=== PATIENT | female | born 1935 | race Caucasian/White ===

== ENCOUNTER 2016-11-18 12:14 | Emergency (ER) | payer OTHER ==
[~2016-11-18] VITALS: Ht 152.4 cm; Wt 80.3 kg
--- NOTE | 2016-11-18 12:42 | ED CARDIAC/CP/PALPITATIONS ---
History of Present Illness General Chief Complaint: General Adult Stated Complaint: UPPER BACK PAIN Source: patient Exam Limitations: no limitations Vital Signs & Intake/Output Vital Signs & Intake/Output Vital Signs Date Time Temp Pulse Resp B/P B/P Pulse O2 O2 Flow FiO2 Mean Ox Delivery Rate 11/18 1607 97.8 109 18 164/104 96 Room Air Room Air 11/18 1426 97.9 110 20 159/94 97 Nasal 2.0L Cannula 11/18 1303 97 Nasal 1.0L Cannula 11/18 1302 119 18 97 Nasal 1.0L Cannula 11/18 1222 98.1 136 18 138/97 95 Room Air Allergies Coded Allergies: Penicillins (HIVES 11/18/16) Sulfa (Sulfonamide Antibiotics) (HIVES 11/18/16) Uncoded Allergies: OPIOID (Severe, GI UPSET FROM NARCOTICS 11/18/16) Reconcile Medications Atorvastatin Calcium 10 MG TABLET 1 TAB PO DAILY CHOLESTEROL (Reported) Bumetanide 0.5 MG TABLET 1 TAB PO DAILY WATER RETENTION (Reported) Losartan Potassium 100 MG TABLET 1 TAB PO DAILY HEART (Reported) Triage Note: PT C/O PAIN UNDER HER LEFT SHOULDER BLADE WITH "TROUBLE BREATHING'. PT SENT IN BY DR. WHALEY TO F/O PE. PT STATES SHE HAS HX OF PE AND IS CURRENTLY TACHY ON THE MONITOR. EKG ORDERED Triage Nurses Notes Reviewed? yes HPI: 81 yo F PMH HTN, HLD, PE (not on AC) presenting with chest pain and shortness of breath. Relatively acute onset right upper back pain radiating through to the chest, pleuritic quality, non-exertional. Associated shortness of breath, constant but worse with ambulation. Bilateral lower extremity edema, right leg > left leg. Denies fevers, chills, palpitations, orthopnea, PND, abdominal symptoms, urinary symptoms, dizziness, headache, or focal neurologic symptoms. History of provoked PE one year ago in the setting of right hip surgery, on warfarin for 6 months, stopped, not currently on AC. Past History Travel History Traveled to [place] past 21 day No Medical History Any Pertinent Medical History? see below for history Cardiovascular: hypertension, hyperlipidemia Respiratory: pulmonary embolism Musculoskeletal: osteoarthritis Surgical History Surgical History: none Psychosocial History Who do you live with Patient/Self Services at Home None What is your primary language Cook Islander Tobacco Use: Quit >30 days ago ETOH Use: occasional use Illicit Drug Use: denies illicit drug use Family History Hx Contributory? No Review of Systems Review of Systems Constitutional: Reports: no symptoms. EENTM: Reports: no symptoms. Respiratory: Reports: short of breath. Cardiovascular: Reports: chest pain, peripheral edema. Denies: orthopena, syncope. GI: Reports: no symptoms. Genitourinary: Reports: no symptoms. Musculoskeletal: Reports: back pain. Skin: Reports: no symptoms. Neurological/Psychological: Reports: no symptoms. Hematologic/Endocrine: Reports: no symptoms. Immunologic/Allergic: Reports: no symptoms. All Other Systems: Reviewed and Negative Physical Exam Physical Exam General Appearance: well developed/nourished, no apparent distress, alert, awake Head: atraumatic Respiratory: normal breath sounds, no respiratory distress Cardiovascular: tachycardia Comments: Pulmonary: Normal WOB, lungs clear to ascultation bilaterally Extremities: Bilateral lower extremity edema, Right > Left Core Measures ACS in differential dx? Yes Severe Sepsis Present: No Septic Shock Present: No Progress Differential Diagnosis: aortic dissection, atrial fibrillation, CHF/pulm edema, myocarditis, pneumonia, pneumothorax, pulmonary embolism, respiratory failure Plan of Care: Orders Procedure Date/time Status Add-on Test (ER Only) 11/18 1344 Active TYPE & SCREEN (NOT X-MATCH) 11/18 1344 Complete EKG 11/18 1317 Active Add-on Test (ER Only) 11/18 1248 Active TROPONIN LEVEL 11/18 1227 Complete PARTIAL THROMBOPLASTIN TIME 11/18 1227 Complete PROTHROMBIN TIME 11/18 1227 Complete B-TYPE NATRIURETIC PEP (BNP) 11/18 1227 Complete D-DIMER 11/18 1223 Complete COMPREHENSIVE METABOLIC PANEL 11/18 1223 Complete CBC WITHOUT DIFFERENTIAL 11/18 1223 Complete EKG 11/18 1223 Active Current Medications Sig/Lanette Start time Last Medication Dose Stop Time Status Admin Heparin Sodium 5,000 UNIT 11/18 1445 CAN (Porcine) Heparin Sodium 25,000 UNIT Q24H 11/18 1415 UNVr 11/18 (Porcine) 1427 (Heparin) Sodium Chloride 500 ML Laboratory Tests 11/18/16 1243: Troponin I Cancelled 11/18/16 1227: Anion Gap 14, Estimated GFR 53 L, BUN/Creatinine Ratio 22.0, Glucose 100 H, Calcium 9.5, Total Bilirubin 1.8 H, AST 23, ALT 26, Alkaline Phosphatase 95, Troponin I 0.15 *H, [id number] Pept 1130 H, Total Protein 7.4, Albumin 4.4, Globulin 3.0, Albumin/Globulin Ratio 1.5, PT 12.0, INR 1.14, APTT 34, D- Dimer High Sensitivty 98152 H, CBC w Diff NO MAN DIFF REQ, RBC 4.94, MCV 89.7, MCH 30.5, RDW 13.7, MPV 7.4, Gran % 78.6 H, Lymphocytes % 12.1 L, Monocytes % 8.7, Eosinophils % 0.4, Basophils % 0.2, Absolute Granulocytes 7.7 H, Absolute Lymphocytes 1.2, Absolute Monocytes 0.8 H, Absolute Eosinophils 0, Absolute Basophils 0, PUBS MCHC 34.1 Physician MDM: 81 yo F PMH HTN, HLD, PE presenting with chest pain, SOB. Saturating in the high 80s/low 90s on RA, tachycardic in the 130s, remainder of cardiopulmonary exam as above. DDx: PE, ACS, PNA, PTX, less likely aortic pathology. ECG sinus tachycardia, non-specific ST changes in V1-V2, STD in V3. Troponin 0.15. Given 500 cc NS with improvement in HR, repeat ECG with resolution of ECG changes. CTA PE with extensive bilateral saddle pulmonary emboli, R>L, RUL pulmonary infarct. Heparin gtt started. BNP elevated at 1130. Bedside U/S without RV > LV, abnormal TAPSE, though no septal bowing on PSSA view. Given submassive PE with evidence of RV strain, case discussed with [facility] ICU attendings, accespted for transfer to [facility] ICU for further evaluation by IR for EKOS. Plan of care discussed with patient and daughter who agree to transfer for further management. (RENNY JAUREGUI,BROCK) Initial ED EKG: rate (tachycardia), ST depression Departure Departure Disposition: OTHER [facility] (ACUTE) Condition: Stable Clinical Impression Primary Impression: Pulmonary embolism Referrals: JOVANA JAUREGUI,HEVER Donnelly (PCP/Family) Departure Forms: Customer Survey General Discharge Information Critical Care Note Critical Care Note Critical Care Time: non-applicable
[2016-11-18 12:50] LABS: ABSOLUTE BASOPHIL COUNT 0 /CUMM (0.0-0.2); ABSOLUTE EOSINOPHIL COUNT 0 /CUMM (0.0-0.7); ABSOLUTE GRANULOCYTE CT 7.7 /CUMM (1.4-6.5); ABSOLUTE LYMPH COUNT 1.2 /CUMM (1.2-3.4); ABSOLUTE MONOCYTE COUNT 0.8 /CUMM (0.10-0.60); BASOPHIL % 0.2 % (0.0-2.0); EOSINOPHIL % 0.4 % (0-5); GRANULOCYTE % 78.6 % (42.2-75.2); HEMATOCRIT 44.3 % (37-47); MEAN CORPUSCULAR HGB 30.5 PG (27.0-31.0); MEAN CORPUSCULAR HGB CONC 34.1 G/DL (33.0-37.0); MEAN CORPUSCULAR VOLUME 89.7 FL (81.0-99.0); MEAN PLATELET VOLUME 7.4 FL (7.4-10.4); PLATELET COUNT 171 /CUMM (130-400); RBC DISTRIBUTION WIDTH 13.7 % (11.5-14.5); RED BLOOD CELL CT 4.94 /CUMM (4.20-5.40); WHITE BLOOD CELL COUNT 9.8 /CUMM (4.8-10.8)
--- NOTE | 2016-11-18 13:32 | RADIOLOGY REPORT ---
EXAMINATION: XR PORTABLE CHEST CLINICAL INFORMATION: Chest pain and short of breath. COMPARISON: 03/19/2013. TECHNIQUE: Portable AP semierect view of the chest was obtained. FINDINGS: The cardiomediastinal silhouette is unremarkable. Lung volumes are diminished. The lungs and pleural spaces appear clear without evidence of congestion, consolidation, or significant appearing effusion or atelectasis. There is no evidence of pneumothorax or pulmonary edema. Included osseous structures appear osteopenic without focal abnormality. IMPRESSION: Low lung volumes without evidence of an acute intrathoracic process.
[2016-11-18 13:57] LABS: PTT 34 SEC (25-37)
[2016-11-18] MEDS ORDERED: LOSARTAN POTAS100 M1 PO (14:22)
[2016-11-18] MEDS ORDERED: ATORVASTATIN CA10 M1 PO (14:22)
[2016-11-18] MEDS ORDERED: BUMETANIDE0.5 M1 PO (14:23)
--- NOTE | 2016-11-18 14:31 | CT SCAN REPORT ---
EXAMINATION: CT ANGIOGRAM OF THE CHEST WITH AND WITHOUT CONTRAST (CT PULMONARY ANGIOGRAM FOR PE) CLINICAL INFORMATION: Chest pain and shortness of breath. COMPARISON: CT chest dated 09/04/2012 TECHNIQUE: Prior to contrast administration, noncontrast localization images were obtained. Subsequently, multidetector volumetric imaging was performed from the thoracic inlet to below the diaphragms following the administration of 95 mL Optiray 320 intravenous contrast. No contrast reaction reported. Sagittal, coronal, and MIP oblique sagittal reformatted images were obtained on the CT workstation, uploaded to PACS, and reviewed. Total exam dose-length product 432.70 mGy-cm. FINDINGS: QUALITY OF STUDY/CONTRAST BOLUS: Satisfactory PULMONARY ARTERIES: Large saddle emboli bilateral distal right main and left main pulmonary arteries with extension into the lobar, segmental and subsegmental pulmonary arteries, right greater than left. There is almost complete occlusion of the distal right main and right lower lobe pulmonary arteries. Emboli extending into bilateral upper lobe, right middle lobe and bilateral lower lobe pulmonary arteries worse in the lower lobe. Bilateral saddle emboli also noted on the CT chest dated 09/02/2012. Current examination demonstrates abnormal distention of the involved distal right main pulmonary artery. THORACIC AORTA: No aneurysm or dissection. 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 Atherosclerotic disease of the aorta and the coronary arteries. LUNG: Wedge-shaped infiltrate posterior segment right upper lobe suspicious for acute evolving infarct. Dependent atelectatic changes bilateral lung bases. PLEURA: Pleural thickening bilateral lower lobes. Trace right pleural effusion. MEDIASTINUM: Small reactive mediastinal lymph nodes. No evidence of lymphadenopathy. No evidence of septal bowing or right heart strain. CHEST WALL/AXILLA: No axillary or internal mammary lymphadenopathy. OSSEOUS STRUCTURES: Abnormal lucency posterior aspect T11 vertebra. Subtle lytic sclerotic changes T12 vertebra. Somewhat similar appearance also seen on the previous examination. No acute osseous abnormality. UPPER ABDOMEN: Tiny lucency suspicious for increasing the possibility of pneumobilia noted in the right hepatic lobe. Status post cholecystectomy. Evaluation is limited. Bilateral adrenal calcifications compatible with chronic change. No reflux of contrast into the hepatic veins to suggest elevated right heart pressures. IMPRESSION: 1. Acute pulmonary embolism with saddle emboli bilateral distal main pulmonary arteries, right greater than left as detailed. There is severe clot burden, right greater than left. 2. Acute evolving infarct suspected in the posterior segment right upper lobe 3. Trace right pleural effusion. 4. Subtle suggestion of pneumobilia. Evaluation is limited on CT chest. Clinically correlate with recent papillotomy. 5. Chronic calcifications bilateral adrenal glands. 6. Nonspecific lucent/lytic lesions T11 and T8 vertebrae also seen on the previous examination with no significant interval change.. VTE: positive Critical results discussed with Quinton Baker at 2:01 PM on 11/18/2016.
[2016-11-18 16:07] VITALS: BP 164/104
== END 2016-11-18 17:00 | disposition short-term general hospital (02) ==
LOC: ERH 12:14
PROVIDERS: Emergency Medicine
DX: I26.99 Other pulmonary embolism without acute cor pulmonale (principal); R07.9 Chest pain, unspecified; Z87.891 Personal history of nicotine dependence; I10 Essential (primary) hypertension; E78.5 Hyperlipidemia, unspecified; M19.90 Unspecified osteoarthritis, unspecified site
CPT/HCPCS: 93005; 93010; 96361; 96374; J1644; J3490; J7040